=== PATIENT | female | born 1960 | race American Indian/Alaskan Native ===

== ENCOUNTER 2016-11-13 13:05 | Emergency (ER) | payer MEDICAID ==
[2016-11-13] MEDS: FLEXERIL PO ONE (16:16)
[2016-11-13] MEDS: TORADOL IM ONE (16:16)
--- NOTE | 2016-11-13 16:36 | XRay Report ---
LUMBAR SPINE RADIOGRAPHS: INDICATION: Lumbar pain after falling off of bed 2 weeks ago. COMPARISON: None similar. FINDINGS: AP and lateral lumbar spine radiographs demonstrate preserved vertebral body stature and disc heights. Straightening noted, possibly positional versus spasm. Few pelvic phleboliths. Nonobstructive bowel gas pattern. Normal bilateral SI joints. CONCLUSION: Findings, as above. Please correlate. Thank you for the opportunity to participate in this patient's care.
[2016-11-13 16:46] VITALS: BP 125/75
--- NOTE | 2016-11-13 18:37 | Emergency Department Report ---
Entered by MAVIS PEARSON, acting as scribe for ROZINA CLAY NP. ED Back Pain/Injury HPI - General Chief Complaint: Back Pain/Injury Stated Complaint: BACK PAIN/LIGHT HEADED Time Seen by Provider: 11/13/16 16:00 Source: patient, family Limitations: No Limitations - History of Present Illness Initial Comments: This is a 56 y/o female, nontoxic, well nourished in appearance, no acute signs of distress presents with chronic back pain, radiating to the right hip and right thigh that began worsening since yesterday after lifting heavy boxes. Patient denies fever, chills, incontinence, dysuria, calf pain, calf swelling, numbness and tingling, chest pain, shortness of breath, headache, or stiff neck. Pain is described as sharp and 10/10 on a severity scale. Patient states difficult to walk from the pain. Patient has experienced similar symptoms in the past which resolves with rest. Allergic to ibuprofen. PMHx of arthritis and hypertension. Friend Farrah Whitney will drive patient home. MD Complaint: back pain Onset/Timin -: days(s) Similar Symptoms Previously: Yes Place: home Radiation: right leg (hip and thigh region) Severity: severe Severity scale (0 -10): 10 Quality: sharp Consistency: constant Improves With: immobilization, supine Worsens With: walking Context: while lifting Associated Symptoms: denies other symptoms, difficulty walking. denies: confusion, weakness, chest pain, numbness, cough, difficulty urinating, diaphoresis, incontinence, fever/chills, constipation, headaches, abdominal pain , loss of appetite, malaise, nausea/vomiting, rash, seizure, shortness of breath , syncope, other (dysuria, calf pain/swelling, numbness and tingling) - Related Data Home Medications Medication Instructions Recorded Confirmed Last Taken Hydrochlorothiazide [Hctz] 25 mg PO QDAY 03/10/13 03/10/13 Unknown Previous Rx's Medication Instructions Recorded Last Taken Type HYDROcodone/APAP 10-325 [[place] 1 each PO Q6HR PRN #20 tablet 03/10/13 Unknown Rx 10/325] Ondansetron [Zofran Odt] 8 mg PO TID PRN #10 tab.rapdis 03/10/13 Unknown Rx amLODIPine [Norvasc] 5 mg PO DAILY #30 tab 03/10/13 Unknown Rx oxyCODONE /ACETAMINOPHEN [Percocet 1 tab PO Q6HR PRN #20 tablet 04/15/14 Unknown Rx 5/325] oxyCODONE /ACETAMINOPHEN [Percocet 1 tab PO Q8H PRN #15 tablet 11/22/14 Unknown Rx 5/325 mg] Acetaminophen [Acetaminophen TAB] 650 mg PO Q6HR PRN #20 tablet 11/13/16 Unknown Rx Cyclobenzaprine [Flexeril] 10 mg PO TID PRN #15 tablet 11/13/16 Unknown Rx Allergies Allergy/AdvReac Type Severity Reaction Status Date / Time ibuprofen [From Motrin] Allergy Itching Verified 04/14/14 23:00 ED Review of Systems Comment: All other systems reviewed and negative Constitutional: denies: chills, fever Eyes: denies: eye pain, eye discharge, vision change ENT: denies: ear pain, throat pain Respiratory: denies: cough, shortness of breath, wheezing Cardiovascular: denies: chest pain, palpitations Endocrine: no symptoms reported Gastrointestinal: denies: abdominal pain, nausea, diarrhea Genitourinary: denies: dysuria, other (incontinence) Musculoskeletal: back pain, other (hip pain and thigh pain, dificulty walking, denies: calf pain/swelling/numbness/tingling) Skin: denies: rash, lesions Neurological: denies: headache, weakness, paresthesias Psychiatric: denies: anxiety, depression Hematological/Lymphatic: denies: easy bleeding, easy bruising ED Past Medical Hx - Past Medical History Previous Medical History?: Yes Hx Hypertension: Yes Hx Arthritis: Yes Additional medical history: Hx of uterine fribroids. Family hx of uterine cancer (Mom, sibling). Anemia - Surgical History Past Surgical History?: Yes Additional Surgical History: Knee sx 2014 - Social History Smoking Status: Never Smoker Substance Use Type: None - Medications Home Medications: Home Medications Medication Instructions Recorded Confirmed Last Taken Type HYDROcodone/APAP 10-325 [[place] 1 each PO Q6HR PRN #20 tablet 03/10/13 Unknown Rx 10/325] Hydrochlorothiazide [Hctz] 25 mg PO QDAY 03/10/13 03/10/13 Unknown History Ondansetron [Zofran Odt] 8 mg PO TID PRN #10 tab.rapdis 03/10/13 Unknown Rx amLODIPine [Norvasc] 5 mg PO DAILY #30 tab 03/10/13 Unknown Rx oxyCODONE /ACETAMINOPHEN [Percocet 1 tab PO Q6HR PRN #20 tablet 04/15/14 Unknown Rx 5/325] oxyCODONE /ACETAMINOPHEN [Percocet 1 tab PO Q8H PRN #15 tablet 11/22/14 Unknown Rx 5/325 mg] Acetaminophen [Acetaminophen TAB] 650 mg PO Q6HR PRN #20 tablet 11/13/16 Unknown Rx Cyclobenzaprine [Flexeril] 10 mg PO TID PRN #15 tablet 11/13/16 Unknown Rx ED Physical Exam - General Limitations: No Limitations General appearance: alert, in no apparent distress - Head Head exam: Present: atraumatic, normocephalic, normal inspection - Eye Eye exam: Present: normal appearance, PERRL, EOMI. Absent: scleral icterus, conjunctival injection, nystagmus, periorbital swelling, periorbital tenderness Pupils: Present: normal accommodation - ENT ENT exam: Present: normal exam, normal orophraynx, mucous membranes moist, TM's normal bilaterally, normal external ear exam - Neck Neck exam: Present: normal inspection, full ROM. Absent: tenderness, meningismus, lymphadenopathy, thyromegaly - Respiratory Respiratory exam: Present: normal lung sounds bilaterally. Absent: respiratory distress, wheezes, rales, rhonchi, stridor, chest wall tenderness, accessory muscle use, decreased breath sounds, prolonged expiratory - Cardiovascular Cardiovascular Exam: Present: regular rate, normal rhythm, normal heart sounds. Absent: bradycardia, tachycardia, irregular rhythm, systolic murmur, diastolic murmur, rubs, gallop - GI/Abdominal GI/Abdominal exam: Present: soft, normal bowel sounds. Absent: distended, tenderness, guarding, rebound, rigid, diminished bowel sounds - Rectal Rectal exam: Present: deferred - Extremities Exam Extremities exam: Present: normal inspection, full ROM, normal capillary refill. Absent: tenderness, pedal edema, joint swelling, calf tenderness - Expanded Lower Extremity Exam Right Hip exam: Present: full ROM, tenderness, external rotation, internal rotation, pelvic stability. Absent: swelling, abrasion, laceration, ecchymosis, deformity , crepidus, dislocation, erythema, shortening Upper Leg exam: Present: normal inspection, full ROM. Absent: tenderness, swelling, abrasion, laceration, ecchymosis, deformity, crepidus, dislocation, erythema Knee exam: Present: normal inspection, full ROM, full knee extension. Absent: tenderness, swelling, abrasion, laceration, ecchymosis, deformity, crepidus, dislocation, erythema, effusion, pain w/ pronation/supination, posterior draw sign, pain/laxity with valgus, pain/laxity with varus Lower Leg exam: Present: normal inspection, full ROM. Absent: tenderness, swelling, abrasion, laceration, ecchymosis, deformity, crepidus, dislocation, erythema, palpable cord, Nanette's sign Ankle exam: Present: normal inspection, full ROM. Absent: tenderness, swelling , abrasion, laceration, ecchymosis, deformity, crepidus, dislocation, erythema, anterior draw sign Foot/Toe exam: Present: normal inspection, full ROM. Absent: tenderness, swelling, abrasion, laceration, ecchymosis, deformity, crepidus, dislocation, erythema, amputation, puncture wound, foreign body, calcaneal tenderness, tenderness at base of 5th metatarsal, nail avulsion, subungual hematoma Neuro vascular tendon exam: Present: no vascular compromise. Absent: pulse deficit, abnormal cap refill, motor deficit, sensory deficit, tendon deficit, extremity cold to touch, pallor, abnormal 2-point discrimination, decreased fine /light touch, foot drop, peroneal nerve deficit, significant pain with passive ROM of distal joint Gait: Positive: observed and limited by pain - Back Exam Back exam: Present: normal inspection, full ROM. Absent: tenderness, CVA tenderness (R), CVA tenderness (L), muscle spasm, paraspinal tenderness, vertebral tenderness, rash noted - Expanded Back Exam Expanded Back exam: Present: normal rectal tone (as per patient). Absent: saddle anesthesia Back exam: Negative Straight Leg Raising: Left, Right - Neurological Exam Neurological exam: Present: alert, oriented X3, CN II-XII intact, normal gait, reflexes normal - Psychiatric Psychiatric exam: Present: normal affect, normal mood - Skin Skin exam: Present: warm, dry, intact, normal color ED Course Vital Signs 11/13/16 11/13/16 11/13/16 13:09 16:16 16:45 Temperature 97.4 F L Pulse Rate 92 H 66 Respiratory 18 20 18 Rate Blood Pressure 135/87 Blood Pressure 125/75 [Right] O2 Sat by Pulse 100 99 Oximetry - Reevaluation(s) Reevaluation #1: 11/13/16 18:00 Patient is able to speak in full sentences with no signs of distress noted. ED Medical Decision Making - Medical Decision Making ED course; this is a 66-year-old female that presents with lumbar radiculopathy versus muscle spasm of the right thigh 1- patient was examined by myself. An x-ray has been obtained of the lumbar spine. Dictated by Dr. Toledo. Impression; straight and noted possibly positional versus spasm. Few pelvic phleboliths. Nonobstructive bowel gas pattern. Normal bilateral SI joints. Patient was notified of x-ray findings with no further questions noted by the patient. 2- patient stated received Toradol in the past with no allergic reaction. Patient received Toradol IM as well as Flexeril. Patient was instructed not to operate any machinery at the time of discharge due to drowsiness/sedation of Flexeril. Patient's friend stated she would go the patient home at discharge. 3- patient received acetaminophen and Flexeril at the time of discharge and was instructed not to operate any machinery while taking Flexeril. 4- patient was instructed to follow up with her primary care doctor 3-5 days or if symptoms worsen such as numbness, tingling, stiff neck, fever, chills shortness of breath or chest pain returns or emergency room as soon as possible. 5- At time time of discharge, the patient does not seem toxic or ill in appearance. No acute signs of distress noted. Patient agrees to discharge treatment plan of care. No further questions noted by the patient. ED Disposition Clinical Impression: Muscle spasm, Lumbar radiculopathy Disposition: - TO HOME OR SELFCARE Is pt being admited?: No Does the pt Need Aspirin: No Condition: Stable Instructions: Acetaminophen (By mouth), Cyclobenzaprine (By mouth), Lumbar Radiculopathy (ED), Muscle Spasm (ED) Additional Instructions: follow up with your primary care doctor 3-5 days or if symptoms worsen such as numbness, tingling, stiff neck, fever, chills shortness of breath or chest pain returns or emergency room as soon as possible. Take Flexeril as prescribed. Do not operate any machinery while taking Flexeril due to sedation/drowsiness. Prescriptions: Acetaminophen [Acetaminophen TAB] 650 mg PO Q6HR PRN #20 tablet PRN Reason: Pain Cyclobenzaprine [Flexeril] 10 mg PO TID PRN #15 tablet PRN Reason: Muscle Spasm Referrals: SOPHIA CHENEY JR, MD [Primary Care Provider] - 3-5 Days NIVIA PALENCIA MD [Staff Physician] - 3-5 Days [facility] [Outside] - 3-5 Days [facility] [Outside] - 3-5 Days This documentation as recorded by the MICHEL arambula ELIZABETH,accurately reflects the service I personally performed and the decisions made by me,ROZINA CLAY, DORI.
== END 2016-11-13 18:50 | disposition home or self-care (01) ==
LOC: ED 13:05
DX: M54.16 Radiculopathy, lumbar region (principal); I10 Essential (primary) hypertension; M19.90 Unspecified osteoarthritis, unspecified site; Z88.6 Allergy status to analgesic agent
CPT/HCPCS: 72100; 96372; 99283; J1885

== ENCOUNTER 2019-02-02 08:46 | Emergency (ER) | payer MEDICAID ==
[2019-02-02] MEDS ORDERED: TETRACAINE 0.5% OU ONE (10:00)
[2019-02-02] MEDS ORDERED: FUL-GLO OP ONE (10:02)
--- NOTE | 2019-02-02 10:12 | Emergency Department Report ---
HPI - General Chief Complaint: Eye Problems Time Seen by Provider: 02/02/19 09:49 - HPI HPI: 58-year-old [place] female presents to the emergency department with complaint of some right eye clear drainage, redness and discomfort for the past 5-6 days. Prior to this, the patient says that she had the same symptoms in the left eye but that has since resolved. She has been wearing an eye patch over the right eye secondary to the amount of tearing/drainage. She says that in the mornings there will be some matting or crusting but denies any discharge throughout the day. She wears contact lenses and sees an piece goods packer but does not have an plant science professor. Denies any fever, headache. Denies any significant vision change. ED Past Medical Hx - Past Medical History Previous Medical History?: Yes Hx Hypertension: Yes Hx Arthritis: Yes Additional medical history: Hx of uterine fribroids. Family hx of uterine cancer (Mom, sibling). Anemia, chronic back pain - Surgical History Past Surgical History?: Yes Additional Surgical History: Knee sx 2014 - Social History Smoking Status: Never Smoker Substance Use Type: None - Medications Home Medications: Home Medications Medication Instructions Recorded Confirmed Last Taken Type HYDROcodone/APAP 10-325 [[place] 1 each PO Q6HR PRN #20 tablet 03/10/13 Unknown Rx 10/325] Ondansetron [Zofran Odt] 8 mg PO TID PRN #10 tab.rapdis 03/10/13 Unknown Rx amLODIPine [Norvasc] 5 mg PO DAILY #30 tab 03/10/13 Unknown Rx hydroCHLOROthiazide [Hctz] 25 mg PO QDAY 03/10/13 03/10/13 Unknown History oxyCODONE /ACETAMINOPHEN [Percocet 1 tab PO Q6HR PRN #20 tablet 04/15/14 Unknown Rx 5/325] oxyCODONE /ACETAMINOPHEN [Percocet 1 tab PO Q8H PRN #15 tablet 11/22/14 Unknown Rx 5/325 mg] Acetaminophen [Acetaminophen TAB] 650 mg PO Q6HR PRN #20 tablet 11/13/16 Unknown Rx Cyclobenzaprine [Flexeril] 10 mg PO TID PRN #15 tablet 11/13/16 Unknown Rx Tobramycin/Dexameth 0.3-0.1% 1 drops OD Q4H #1 bottle 02/02/19 Unknown Rx [Tobradex] ED Review of Systems ROS: Stated complaint: RT EYE REDNESS/BLURRY/PAIN Other details as noted in HPI Comment: All other systems reviewed and negative Constitutional: denies: chills, fever Eyes: eye pain, eye discharge ENT: congestion. denies: ear pain, throat pain Neurological: denies: headache, weakness Physical Exam - Physical Exam Vital Signs: Vital Signs 02/02/19 08:49 Temperature 98.1 F Pulse Rate 90 Respiratory 16 Rate Blood Pressure 153/81 O2 Sat by Pulse 100 Oximetry Physical Exam: GENERAL: The patient is well-developed well-nourished. HENT: Normocephalic. Atraumatic. Patient has moist mucous membranes. EYES: Extraocular motions are intact. Pupils equal reactive to light bilaterally. The right eye has diffuse conjunctival injection. No corneal defect with any fluorescein uptake. Visual acuity: OD 20/50, OS 20/30, both eyes 20/25. NECK: Supple. Trachea is midline. ABDOMEN: There is no abdominal distention. SKIN: Skin is warm and dry. NEURO: The patient is awake, alert, and oriented. The patient is cooperative. The patient has no focal neurologic deficits. Normal speech. MUSCULOSKELETAL: There is no tenderness or deformity. There is no evidence of acute injury. ED Course Vital Signs 02/02/19 08:49 Temperature 98.1 F Pulse Rate 90 Respiratory 16 Rate Blood Pressure 153/81 O2 Sat by Pulse 100 Oximetry ED Medical Decision Making - Medical Decision Making Patient presents with a one-week history of some right eye irritation, clear tearing/drainage, and apparently some matting or crusting in the morning. On examination she has diffuse right conjunctival injection. Pupils are equal reactive to light bilaterally. Extraocular motion is intact. There is no sign of any current drainage, tearing. She has poor visual acuity in that right eye when compared to the left, however the patient is not currently wearing her corrective lenses. There was no fluorescein uptake or any obvious corneal defect. Patient may have some conjunctivitis or a mild iritis. She has been placed on antibiotic drops with steroid and given referrals for multiple ophthalmologists for follow-up. She will return to the ER with any worsening of her symptoms or any acute distress. - Differential Diagnosis conjunctivitis, iritis, corneal abrasion Critical Care Time: No Critical care attestation.: If time is entered above; I have spent that time in minutes in the direct care of this critically ill patient, excluding procedure time. ED Disposition Clinical Impression: Iritis Conjunctivitis Qualifiers: Conjunctivitis type: unspecified Laterality: right Qualified Code(s): H10.9 - Unspecified conjunctivitis Disposition: TO HOME OR SELFCARE Is pt being admited?: No Condition: Stable Instructions: Conjunctivitis (ED), Iritis (ED) Additional Instructions: Please follow-up with an plant science professor as soon as possible and I have given you a referral for 3 different plant science professor. Return to the emergency Department with any worsening of your symptoms or any acute distress. Prescriptions: Tobramycin/Dexameth 0.3-0.1% [Tobradex] 1 drops OD Q4H #1 bottle Referrals: LEONOR MAYEN MD [Staff Physician] - [facility] EARLENE ANTHONY MD [Staff Physician] - [facility] [Provider Group] - [facility] Time of Disposition: 10:43
[2019-02-02 10:54] VITALS: BP 148/80
== END 2019-02-02 10:52 | disposition home or self-care (01) ==
LOC: ED 08:46
DX: H10.9 Unspecified conjunctivitis (principal); H20.9 Unspecified iridocyclitis; I10 Essential (primary) hypertension; M19.90 Unspecified osteoarthritis, unspecified site; D64.9 Anemia, unspecified; M54.9 Dorsalgia, unspecified; G89.29 Other chronic pain; Z98.890 Other specified postprocedural states; Z79.899 Other long term (current) drug therapy; Z88.6 Allergy status to analgesic agent